=== PATIENT | male | born 1975 | race Caucasian/White ===

== ENCOUNTER 2020-07-02 00:51 | Emergency (ER) | payer OTHER ==
[2020-07-02] MEDS ORDERED: Ondansetron PF 4 MG/2 ML Vial ONE (01:23)
[2020-07-02] MEDS ORDERED: Morphine 4 MG/ML VIAL ONE ×2 (01:23→01:50)
--- NOTE | 2020-07-02 07:42 | RAD ---
EXAM: 3 views of the right ankle HISTORY: Ankle pain after after slipping on ice and falling COMPARISON: None FINDINGS: 3 views of the right ankle shows a spiral fracture of the distal fibula. There is a fractur e of the medial malleolus. There is widening of the medial clear space. Moderate diffuse soft tissue swelling is seen. No degenerative changes are present. IMPRESSION: Bimalleolar right ankle fracture
--- NOTE | 2020-07-02 07:46 | RAD ---
Radiograph right leg tibia-fibula 2 views: 07/02/2020 HISTORY: 44-year-old male status post acute twisting injury, traumatic pain FINDINGS: Spiral fracture of distal fibula from distal-most diaphysis to the distal metaphysis. Approximately 2 0% bone width inferior no posterior displacement of distal fragment, without significant angulation and without significant displacement in transverse dimension. Lateral soft tissue swelling. Transversely oriented fracture across upper-midportion of medial malleolus, with 75% bone width later al displacement of distal fragment. Asymmetry of ankle mortise, widening superomedially and narrowed superolaterally. No posterior malleolus fracture. Talar dome is maintained. Proximal tibia and fibula are intact. IMPRESSION: Acute, traumatic, displaced bimalleolar fracture of right ankle.
== END 2020-07-02 02:05 | disposition home or self-care (01) ==
LOC: ERS 00:51
DX: S82.851A Displaced trimalleolar fracture of right lower leg, initial encounter for closed fracture (principal); Z87.891 Personal history of nicotine dependence; W01.0XXA Fall on same level from slipping, tripping and stumbling without subsequent striking against object, initial encounter
CPT/HCPCS: 29515; 96374; 96375; 96376; J2270; J2405